=== PATIENT | male | born 1935 | race Caucasian/White ===

== ENCOUNTER 2017-03-19 01:29 | Day surgery (SDC) | payer MEDICARE, OTHER ==
[~2017-03-19] VITALS: Ht 175.3 cm; Wt 81.7 kg
[~2017-03-19 01:29] MED LIST: CHOL10008 PO; HYDR12.5 PO; LOPE1LIQ9 PO; OMEP20CA11 PO; fentaNYL-PF 50 mCg/mL 2 mL Inj IVPUSH PRN
[2017-03-19 12:39] VITALS: BP 126/75; PULSE 77; RESP 16; O2SAT 95
[2017-03-19 14:10] VITALS: BP 118/72; PULSE 76; RESP 16; O2SAT 95
[2017-03-19 14:20] VITALS: BP 118/68; PULSE 74; RESP 16; O2SAT 92
--- NOTE | 2017-03-19 22:31 | ENDO ---
[address] [address] ENDOSCOPY PROCEDURE PATIENT: MENDEZ LUND : 1935 MR#: [id number] ADMIT: 03/19/2017 JOB ID: [id number] DATE: 03/19/2017 PREPROCEDURE DIAGNOSIS(ES): History of rectal cancer. POSTPROCEDURE DIAGNOSIS: History of rectal cancer. PROCEDURE PERFORMED: 1. Colonoscopy. 2. Hot snare cautery and cold forceps biopsy SURGEON: Sandra Walker MD. INSTRUMENT: Olympus PCF H 180 AL. MEDICATIONS: 1. Versed at 3 mg. 2. Fentanyl 75 mcg. PREPARATION: Good. HISTORY OF PRESENT ILLNESS: This is a 81-year-old man with a history of T2 N0 rectal cancer status post low anterior resection by Barber Rasheed MD. This was performed in 2013. One year ago, he had surveillance colonoscopy, which revealed a tubular adenoma in the ascending colon. A CT scan of the chest, abdomen and pelvis at that time showed a questionable left posterior soft tissue mass lesion versus postsurgical change near the rectum. The CT scan was repeated later in 2015 and showed that this mass was about the same. CEA was repeated on February 23, 2017 and was 5.0, which is just slightly above the normal threshold for normal. Therefore, repeat colonoscopy was recommended. FINDINGS: 1. The colorectal anastomosis appeared normal. Biopsies were obtained. 2. A few small diverticula in the left colon. 3. Ascending colon polyp, removed with hot snare cautery. DESCRIPTION OF PROCEDURE: The patient was brought to the procedure suite and placed in left lateral decubitus position. A procedural pause was performed. Moderate anesthesia was induced. A digital rectal examination was performed and was normal. The anastomosis could barely be palpated, and it was normal. The endoscope was advanced to the cecum. The prep was good. The terminal ileum was cannulated, and was normal. The cecum was normal. There was a small 1 cm polyp in the ascending colon, which was removed with hot snare cautery. The colonoscope was withdrawn. There were two or three small diverticula in the left colon. The anastomosis appeared normal, and biopsies were obtained. Retroflexed examination of the rectum revealed internal hemorrhoids only. There were no other mucosal abnormalities, strictures, or inflammation in the visualized colon and terminal ileum. The colonoscope was removed. The patient tolerated the procedure well. COMPLICATIONS: None. SPECIMENS: 1. Colorectal anastomosis biopsy at 12 cm. 2. Ascending colon polyp. ESTIMATED BLOOD LOSS: None.
--- NOTE | 2017-03-23 12:59 | PATH ---
SURGICAL PATHOLOGY Attending Physician:Sandra Walker MD CASE STATUS: Signed Out PATIENT NAME: MENDEZ LUND PID: [id number] : 1935 DATE COLLECTED:03/19/2017 00:00 SPECIMEN: 1: Colon, Biopsy 2: Colon, Biopsy CLINICAL HISTORY: 1. COLORECTAL ANASTAMOSIS BXS 2. ASCENDING COLON POLYP FINAL DIAGNOSIS: 1.COLORECTAL ANASTOMOSIS BIOPSIES: FRAGMENTS OF COLON MUCOSA WITH NO SIGNIFICANT PATHOLOGIC CHANGE. Negative for atypia and malignancy. 2.ASCENDING COLON POLYP: TUBULAR ADENOMA INVOLVING BOTH BIOPSY FRAGMENTS. ICD10 CODE D12.2 GROSS DESCRIPTION: The specimen is received in two formalin filled containers labeled with the patient's name. 1). The specimen is sublabeled "colorectal anastomosis" and consists of 2 portions of tissue which aggregate to 0.3 x 0.3 x 0.2 CM. The specimen is entirely submitted in cassette 1A. 2). The specimen is sublabeled "ascending colon polyp" and consists of 2 portions of tissue which aggregate to 0.5 x 0.3 x 0.2 CM. The specimen is entirely submitted in cassette 2A. 03/20/2017 [facility] MICRO DESCRIPTION: See diagnosis. ICD-9 CODES: CPT CODES: 1: 27107 2: 78771 Electronically Signed Out Rick Castro MD [facility] Pathology [facility] [address], [place] [address] Technical component performed at [facility], [address] [place] [address] Ave[address], [place], [address]
== END 2017-03-19 23:59 | disposition home or self-care (01) ==
LOC: END 01:29
PROVIDERS: ATTEND Surgery
DX: Z12.11 Encounter for screening for malignant neoplasm of colon (principal); Z85.048 Personal history of other malignant neoplasm of rectum, rectosigmoid junction, and anus; Z86.010 Personal history of colon polyps; D12.2 Benign neoplasm of ascending colon; K57.30 Diverticulosis of large intestine without perforation or abscess without bleeding; I10 Essential (primary) hypertension; E03.9 Hypothyroidism, unspecified; N40.0 Benign prostatic hyperplasia without lower urinary tract symptoms; Z92.21 Personal history of antineoplastic chemotherapy; Z87.891 Personal history of nicotine dependence
CPT/HCPCS: 45380; 45385; 99153; G0500; J7030